=== PATIENT | female | born 1970 | race Caucasian/White ===

== ENCOUNTER 2019-04-15 19:00 | Emergency (ER) | payer MEDICAID, SELFPAY ==
[2019-04-15 19:05] VITALS: BP 122/73; PULSE 89; RESP 18; TEMP 36.8; O2SAT 96
--- NOTE | 2019-04-15 19:25 | ED.GENADUL_ITS ---
Discharge Plan Disposition Patient Disposition: HOME Condition: Stable Discharge Details Chief Complaint: RespSymp Clinical Impression: Sinusitis, Acute upper respiratory infection Primary Care Provider: Conor Cisneros ED Provider: Allen Herman Home Meds and New Rx's Prescriptions: New amoxicillin-pot clavulanate [Augmentin] 875-125 mg tablet 1 tab PO BID Qty: 14 RF: 0 prednisone 20 mg tablet 60 mg PO DAILY 5 Days Qty: 15 RF: 0 Continued lorazepam 0.5 MG tablet 0.5 mg PO PRN PRNRF: 0 Discharge Instructions Instructions: Sinusitis (ED), Upper Respiratory Infection (ED) Additional Instructions: follow up with your primary care provider within 1-2 weeks if you feel you are becoming more ill or having worsening shortness of breath return to the emergency department use the inhaler 2 puffs every 4 hours as needed for shortness breath Medical Decision Making 49 yo female with prior hx of breast cancer in remission, smoker, who comes in with sinus pain for 10 days and cough for several days. No fevers, no recent travel. She is in no distress on exam speaking in full sentences. She does have apical wheezing bilaterally at the apices otherwise clear lungs so doubt pneumonia. Suspect she has a uri with some reactive airway disease from her smoking. Will treat with duoneb and prednisone and reassess. Given noral oxygenation and no fever do not feel labs or imaging indicated. She has had sinus pressure and congestion for 10 days and pain with percussion over the maxillary sinuses consistent with sinusitis. Given length of time will start abx to treat for this. Has eomi without severe headaches so doubt entities such as cavernous sinus thrombosis, cerebral venous thrombosis or orbital cellulitis. pt feels significantly better after nebs and steroid and has only very mild apical wheezing now. Feel she is stable for d/c, return precautions given Differential Diagnosis Differential Diagnosis: sinusitis, uri HPI General Mode of arrival: ambulatory . Date/Time Provider Initiated Documentation: 04/15/19 19:18 . Limitations to Documentation: no limitations . Information obtained by: patient . History of Present Illness 49 year old F presents to the emergency department with the chief complaint of sinus congestion, described as moderate, Quality is described as aching, and is localized to the face. Patient reports no radiation. Patient started experiencing this day(s) (1) and it has been constant. No relieving factors improve symptom(s), No exacerbating factors reported . Patient notes cough. Patient did receive the following treatments prior to arrival, none Related Data Home Medications Medication Instructions Recorded Confirmed lorazepam 0.5 mg PO PRN PRN 04/16/17 04/15/19 amoxicillin-pot clavulanate 1 tab PO BID #14 tab 04/15/19 [Augmentin] prednisone 60 mg PO DAILY 5 Days #15 tab 04/15/19 Previous Rx's Medication Instructions Recorded amoxicillin-pot clavulanate 1 tab PO BID #14 tab 04/15/19 [Augmentin] prednisone 60 mg PO DAILY 5 Days #15 tab 04/15/19 Allergies Allergy/AdvReac Type Severity Reaction Status Date / Time codeine AdvReac Nausea Unverified 04/16/17 16:49 General Stated Complaint: RespSymp ROYA: 3 Review of Systems Review of Systems ROS Unobtainable: All systems reviewed & are unremarkable except as noted in HPI and below Constitutional Constitutional: Denies fever(s) and Denies weakness Cardiovascular Cardiovascular: Denies chest pain and Denies dyspnea Respiratory Respiratory: Denies dyspnea Gastrointestinal Gastrointestinal: Denies abdominal pain, Denies nausea and Denies vomiting Musculoskeletal Musculoskeletal: Denies joint swelling Neurologic Neurologic: Denies weakness PFSH Medical History Ductal carcinoma of right breast invasive, ductal, nuclear grade III. ER/VA neg. HER2+. cT2cN1/2 stage II/III. s/p neoadjuvant chemo, lumpectomy and XRT. Tobacco use Surgical History (Updated 05/20/18 @ 14:36 by [employer]) Biopsy of breast (10/22/16) right Breast, Mastectomy Partial mastectomy after neoadjuvant chemo, XRT. Family History Mother Heart disease Father Neoplasm lung and kidney Grandmother Heart disease Social History Smoking/Tobacco Use Status: Current every day Alcohol Intake: current Alcohol Intake frequency: holidays/special occasions only Drug use: Occasionally Substance use type: marijuana Do you feel safe at home: Yes Do you feel safe in your relationship?: Yes Exam Const General: no acute distress Orientation: alert HENMS Head: normal to inspection Ears: external ears normal General nose exam: external nose normal Mouth: moist mucous membranes Eyes General: appearance normal, both eyes and all related structures Neck Neck: normal visual inspection Resp Effort & Inspection: normal respiratory effort and able to speak in complete sentences Cardio Rate: regular rate Skin General skin exam: no rashes or lesions noted Neuro General: alert and oriented x3 Extrem General: normal to inspection Psych Mental Status: mental status grossly normal Course Vital Signs Vital signs: Vital Signs Temperature 36.8 C 04/15/19 19:05 Pulse 89 04/15/19 19:05 Respiratory Rate 18 04/15/19 19:05 Blood Pressure 122/73 04/15/19 19:05 Pulse Oximetry 96 04/15/19 19:05 Temperature 36.8 C 04/15/19 19:05 Pulse 89 04/15/19 19:05 Respiratory Rate 18 04/15/19 19:05 Respiratory Effort Non-Labored 04/15/19 19:07 Blood Pressure 122/73 04/15/19 19:05 Blood Pressure Position Sitting 04/15/19 19:05 Pulse Oximetry 96 04/15/19 19:05 Oxygen Delivery Method Room Air 04/15/19 19:05 Oxygen Flow Rate 0 04/15/19 19:05 Pain Level 7 04/15/19 19:05
[2019-04-15] MEDS: Amoxicillin 875/Clav. 125 TAB PO (19:33)
[2019-04-15] MEDS: Albuterol/Ipratropium 3 ML UPD VIAL UPD (19:34)
[2019-04-15] MEDS: predniSONE 20 MG TAB 60 MG PO (19:34)
[2019-04-15] MEDS: Albuterol HFA 8 GM 60 PUFF INH IH (19:42)
[2019-04-15 19:51] VITALS: BP 122/73; PULSE 89; RESP 18; O2SAT 96
== END 2019-04-15 19:51 | disposition home or self-care (01) ==
PROVIDERS: Emergency Provider Emergency Medicine; PCP Internal Medicine Medical Oncology
DX: J01.00 Acute maxillary sinusitis, unspecified (principal); J45.909 Unspecified asthma, uncomplicated; F17.210 Nicotine dependence, cigarettes, uncomplicated
CPT/HCPCS: 94640; 99283; J7512; J7620

== ENCOUNTER 2020-02-23 09:23 | Outpatient (REF) | payer MEDICAID, SELFPAY ==
--- NOTE | 2020-02-23 08:30 | PAPFT_PTH ---
PATIENT: Grisel Merdia LOC: [facility] U#:[id number] AGE/SX: 50/F ROOM: RE02/23/[address]: Miranda Herman NP : 1970 BED: DIS: 02/23/2020 SPEC #: [id number] RECD: 02/23/20 12:58 STATUS: KARON REQ #: [id number] VITA: 02/23/20 08:[address]: Miranda Herman NP DEPT: COUNTS INCLUDE 234 BEDS AT THE [facility] Cytology RECD BY: Lexie Arellano ENTERED: 02/23/20 12:58 SP TYPE: PAPFT OTHR DR: Conor Cisneros Tissues: 1 - CX/ENDOCX FOR PAP SMEARS Procedures: PAP THIN PREP/UVM Screening HPV DNA PROBE Comments: [id number]
== END 2020-02-23 09:43 ==
LOC: LBN 09:23
PROVIDERS: PCP Internal Medicine Medical Oncology; Visit Provider Nurse Practitioner Women's Health
DX: Z11.51 Encounter for screening for human papillomavirus (HPV) (principal)
CPT/HCPCS: 88142; 87624

== ENCOUNTER 2020-02-24 01:47 | Outpatient (CLI) | payer MEDICAID, SELFPAY ==
[2020-02-24 13:25] LABS: Hemoglobin A1C 5.5 % (3.8-5.6)
[2020-02-24 14:16] LABS: Calculated LDL 149 mg/dL (<100); Cholesterol 221 mg/dL (<200); HDL Cholesterol 52 mg/dL (40-60); TSH (W/Ref FT4) 1.72 uIU/mL (0.36-3.74); Triglyceride 102 mg/dL (<150)
== END 2020-02-24 02:07 ==
PROVIDERS: PCP Internal Medicine Medical Oncology; Visit Provider Nurse Practitioner Women's Health
DX: Z13.1 Encounter for screening for diabetes mellitus (principal); R63.4 Abnormal weight loss; Z13.220 Encounter for screening for lipoid disorders
CPT/HCPCS: 36415; 80061; 83036; 84443

== ENCOUNTER 2022-02-08 12:26 | Emergency (ER) | payer OTHER, SELFPAY ==
[2022-02-08 12:30] VITALS: BP 132/78; PULSE 70; RESP 18; TEMP 36.6; O2SAT 100
--- NOTE | 2022-02-08 12:45 | DI.RAD_ITS ---
Exam(s) XR FOOT RT COMPLETE EXAM: XR FOOT RT COMPLETE CLINICAL HISTORY: foot trauma. TECHNIQUE: 2D digital imaging was performed. Three views. COMPARISON: CR XR FOOT LT COMPLETE from 02/08/2022 FINDINGS: BONES: No acute fracture is present. No bony destructive lesion is seen. JOINTS: No dislocation present. SOFT TISSUE: Normal. IMPRESSION: Unremarkable radiographs of the right foot. DATA REPOSITORY: RADIATION DOSE DELIVERED:
--- NOTE | 2022-02-08 12:45 | DI.RAD_ITS ---
Exam(s) XR FOOT LT COMPLETE EXAM: XR FOOT LT COMPLETE CLINICAL HISTORY: foot trauma. TECHNIQUE: 2D digital imaging was performed. Three views. COMPARISON: No exams were available for comparison FINDINGS: BONES: No acute fracture is present. No bony destructive lesion is seen. JOINTS: No dislocation present. SOFT TISSUE: Normal. IMPRESSION: Unremarkable radiographs of the left foot. DATA REPOSITORY: RADIATION DOSE DELIVERED:
--- NOTE | 2022-02-08 13:40 | W.ED.GENAD ---
Discharge Plan Disposition Patient Disposition: HOME Condition: Stable Discharge Details Clinical Impression: Crush injury of left foot, Crush injury of right foot Primary Care Provider: Conor Cisneros ED Provider: Reggie Lamb Home Meds and New Rx's Prescriptions: Continued black cohosh 200 mg capsule 200 mg PO DAILY lorazepam 0.5 MG tablet 0.5 mg PO PRN PRN Discharge Instructions Instructions: Foot Contusion (ED) Additional Instructions: X-rays are unremarkable. [id number] Tylenol and/or Motrin as directed for discomfort. Rest, elevate, cool compresses every 2 hours for 20 minutes. Please watch for new or worsening symptoms and return to the ER for any concerns. If symptoms are persisting early next week I recommend either follow-up with your primary care provider or Workmen's Comp. provider depending on what is recommended by your employer. Medical Decision Making 52-year-old female presents for bilateral foot injury while wearing regular sneakers, pallet ugo ran over her feet. Neuro, vascular, tendon intact. Plan to obtain x-rays and reassess X-rays unremarkable. Patient reports mild pain moderate with walking. Declines crutches. Comfortable with discharge. Standard discharge and return precautions were provided. Patient understands, is agreeable to this plan, and has no additional questions or concerns upon discharge. This documentation was generated using [employer] system, please disregard any oddities of phrase or misspellings. Medical Records Medical records reviewed: Yes I reviewed the patient's medical records. Imaging Data Radiologic Study: Attestation: I personally reviewed and interpreted this imaging study as follows: Imaging: X-Ray Radiologist's impression: EXAM: XR FOOT LT COMPLETE CLINICAL HISTORY: foot trauma. TECHNIQUE: 2D digital imaging was performed. Three views. COMPARISON: No exams were available for comparison FINDINGS: BONES: No acute fracture is present. No bony destructive lesion is seen. JOINTS: No dislocation present. SOFT TISSUE: Normal. IMPRESSION: Unremarkable radiographs of the left foot. Radiologic Study #2: Attestation: I personally reviewed and interpreted this imaging study as follows: Imaging: X-Ray Radiologist's impression: EXAM: XR FOOT RT COMPLETE CLINICAL HISTORY: foot trauma. TECHNIQUE: 2D digital imaging was performed. Three views. COMPARISON: CR XR FOOT LT COMPLETE from 02/08/2022 FINDINGS: BONES: No acute fracture is present. No bony destructive lesion is seen. JOINTS: No dislocation present. SOFT TISSUE: Normal. IMPRESSION: Unremarkable radiographs of the right foot. HPI General Mode of arrival: ambulatory. Date/Time Provider Initiated Documentation: 02/08/22 13:40. Limitations to Documentation: no limitations. Information obtained by: patient. History of Present Illness 52 year old F presents to the emergency department with the chief complaint of bilat foot injury, described as moderate, with intensity rated at 4. Quality is described as aching, and is localized to the left, right and lower extremity. Patient reports no radiation. Patient started experiencing this hour(s) (1) and it has been constant. Immobilization improves symptom(s), Movement worsens symptoms . Patient notes no other symptoms.. Patient did receive the following treatments prior to arrival, none Related Data Home Medications Medication Instructions Recorded Confirmed lorazepam 0.5 mg tablet 0.5 mg PO PRN PRN 04/16/17 02/23/20 black cohosh 200 mg capsule 200 mg PO DAILY 02/23/20 02/23/20 Allergies Allergy/AdvReac Type Severity Reaction Status Date / Time codeine AdvReac Nausea Unverified 02/23/20 08:12 General Stated Complaint: Orthopedic ROYA: 4 Review of Systems Constitutional Constitutional: Denies weakness Musculoskeletal Musculoskeletal: Denies deformity, Denies arthralgias, Denies numbness, Reports stiffness and Denies tingling Integumentary/Breasts Skin/Breast: Denies erythema Neurologic Neurologic: Denies numbness, Denies tingling and Denies weakness PFSH All Active Problems (Updated 02/08/22 @ 13:46 by ANNA Mora) Crush injury of left foot (Acute) Crush injury of right foot (Acute) Lichen sclerosus et atrophicus (Acute) Anxiety (Chronic) Surgical History Biopsy of breast (10/22/16) right Breast, Mastectomy Partial mastectomy after neoadjuvant chemo, XRT. Family History Mother Heart disease Father Neoplasm lung and kidney Grandmother Heart disease Social History Smoking/Tobacco Use Status: Current every day Smoking risk assessment performed?: Yes Alcohol Intake: current Alcohol Intake frequency: holidays/special occasions only Drug use: Occasionally Substance use type: marijuana Do you feel safe at home: Yes Do you feel safe in your relationship?: Yes Female Reproductive History Menstrual Menopause type: natural Date of menopause: 12/04/16 History History 3 Para 1 Hx # Term Pregnancies Multiple births Hx # Pregnancies Ectopic pregnancies AB induced Hx Number of Living Children AB spontaneous Exam Const General: cooperative, healthy appearing, comfortable and no acute distress Orientation: alert and awake HENMT Head: normal to inspection, normocephalic and atraumatic Eyes Conjunctivae: conjunctivae normal Neck Neck: normal visual inspection, full ROM, trachea midline and supple Resp Effort & Inspection: normal respiratory effort and able to speak in complete sentences Cardio Rate: regular rate Rhythm: regular rhythm Skin General skin exam: no rashes or lesions noted Neuro General: patient alert, patient awake, moves all extremities and no focal motor deficits Cognition: normal cognition Speech: speech normal Gait: antalgic Motor: muscle tone normal throughout Sensory Exam: no sensory deficits noted Extrem General: full ROM and capillary refill normal Ankle/foot/toe images: 1. Multiple areas of contusion. Skin is intact. 5 out of 5 strength. Neuro, vascular, tendon intact. No deformity. Normal capillary refill and dorsalis pedal pulses bilaterally Psych Appearance: grossly normal Mental Status: mental status grossly normal Course Vital Signs Vital signs: Vital Signs Temperature 36.6 C 02/08/22 12:30 Pulse 70 02/08/22 12:30 Respiratory Rate 18 02/08/22 12:30 Blood Pressure 132/78 02/08/22 12:30 Pulse Oximetry 100 02/08/22 12:30 Temperature 36.6 C 02/08/22 12:30 Temperature Source Oral 02/08/22 12:30 Pulse 70 02/08/22 12:30 Respiratory Rate 18 02/08/22 12:30 Blood Pressure 132/78 02/08/22 12:30 Blood Pressure Position Supine 02/08/22 12:30 Pulse Oximetry 100 02/08/22 12:30 Oxygen Delivery Method Room Air 02/08/22 12:30 Oxygen Flow Rate 0 02/08/22 12:30 Pain Level 7 02/08/22 12:30 Comment 02/08/22 12:30
== END 2022-02-08 14:00 | disposition home or self-care (01) ==
PROVIDERS: Emergency Provider Physician Assistant; PCP Internal Medicine Medical Oncology
DX: S97.82XA Crushing injury of left foot, initial encounter (principal); S97.81XA Crushing injury of right foot, initial encounter; X58.XXXA Exposure to other specified factors, initial encounter
CPT/HCPCS: 99283; 73630

== ENCOUNTER → 2022-03-07 14:49 | Outpatient (CLI) | payer OTHER, SELFPAY ==
--- NOTE | 2022-03-07 14:30 | DI.RAD_ITS ---
Exam(s) XR FOOT RT COMPLETE EXAM: XR FOOT RT COMPLETE CLINICAL HISTORY: PERSISTENT RIGHT FOOT PAIN. CRUSHING INJURY TO FOOT--S97.81xA. TECHNIQUE: 2D digital imaging was performed. Three views. COMPARISON: No exams were available for comparison FINDINGS: BONES: No acute fracture is present. No bony destructive lesion is seen. JOINTS: No dislocation present. SOFT TISSUE: Normal. IMPRESSION: Unremarkable radiographs of the right foot. DATA REPOSITORY: RADIATION DOSE DELIVERED:
== END ==
PROVIDERS: PCP Internal Medicine Medical Oncology; Visit Provider Nurse Practitioner Family
DX: M79.671 Pain in right foot (principal)
CPT/HCPCS: 73630

== ENCOUNTER 2023-08-26 13:11 | Emergency (ER) | payer SELFPAY ==
[2023-08-26 13:14] VITALS: BP 149/89; PULSE 96; RESP 18; TEMP 37.2; O2SAT 100
--- NOTE | 2023-08-26 14:10 | ED.GENADUL_ITS ---
HPI General Mode of arrival: ambulatory . Date/Time Provider Initiated Documentation: 08/26/23 13:19 . Limitations to Documentation: no limitations . Information obtained by: patient . HPI Narrative: 54-year-old female presents with chief complaint of I need a work note to go back to work. Patient has no complaints. She notes over the past few days she has had some headache and nausea. Patient's significant other had nausea, vomiting and diarrhea around the same time. She denies respiratory illness. Patient notes she feels completely well at this time with no symptoms. She has no other complaints. Related Data Home Medications Medication Instructions Recorded Confirmed acetaminophen 500 mg capsule 500 mg PO Q6H PRN 05/10/22 08/26/23 ibuprofen 200 mg tablet 200 mg PO Q6H PRN 05/10/22 08/26/23 Allergies Allergy/AdvReac Type Severity Reaction Status Date / Time codeine AdvReac Nausea Verified 08/26/23 13:17 General Stated Complaint: GenMedical ROYA: 5 Review of Systems All systems reviewed & are unremarkable except as noted in HPI and below Constitutional Constitutional: Denies fever(s) Cardiovascular Cardiovascular: Denies chest pain Gastrointestinal Gastrointestinal: Denies abdominal pain Exam Const General: cooperative and no acute distress HENMT Mouth: moist mucous membranes Eyes Conjunctivae: normal conjunctivae Sclera: normal sclerae Cardio Rate: regular rate and not tachycardic Neuro General: patient alert, patient awake and tone normal Extrem General: no edema Psych Appearance: grossly normal Mental Status: mental status grossly normal Speech and Movement: speech and movement normal Course Vital Signs Vital signs: Vital Signs Temperature 37.2 C 08/26/23 13:14 Pulse 96 H 08/26/23 13:14 Respiratory Rate 18 08/26/23 13:14 Blood Pressure 149/89 H 08/26/23 13:14 Pulse Oximetry 100 08/26/23 13:14 Temperature 37.2 C 08/26/23 13:14 Temperature Source Skin 08/26/23 13:14 Pulse 96 H 08/26/23 13:14 Respiratory Rate 18 08/26/23 13:14 Respiratory Effort Normal, Non-Labored 08/26/23 13:17 Blood Pressure 149/89 H 08/26/23 13:14 Blood Pressure Position Sitting 08/26/23 13:14 Pulse Oximetry 100 08/26/23 13:14 Oxygen Delivery Method Room Air 08/26/23 13:14 Oxygen Flow Rate 0 08/26/23 13:14 Pain Level 0 08/26/23 13:14 Medical Decision Making 53-year-old female here for well check requesting a work note to return to work. Patient recently had headache with some nausea and was generally not feeling well. Her significant other had nausea vomiting and diarrhea around the same time. She is now completely asymptomatic. Patient is hemodynamically stable. No acute medical condition identified on examination. Plan for discharge with routine outpatient follow-up. Disposition decision was made weighing the risks and benefits of hospitalization versus outpatient treatment, the risk for further decompensation, and the patient's wishes. The patient was stable and requested discharge. Prior to discharge, my usual and customary return precautions were reviewed with the patient. Quality:SDOH Health Related Social Needs: No Data to Display PFSH All Active Problems Well adult health check (Acute) Plantar fasciitis of right foot (Acute) Metatarsalgia (Acute) Crush injury of foot (Acute) Lichen sclerosus et atrophicus (Acute) Anxiety (Chronic) Surgical History Breast, Mastectomy Partial mastectomy after neoadjuvant chemo, XRT. Biopsy of breast (10/22/16) right Family History Mother Heart disease Father Neoplasm lung and kidney Grandmother Heart disease Social History Smoking/Tobacco Use Status: Current every day Tobacco Type: cigarettes Smoking risk assessment performed?: Yes Alcohol Intake: current Alcohol Intake frequency: holidays/special occasions only Drug use: Occasionally Substance use type: marijuana Current gender identity: female Do you feel safe at home: Yes Do you feel safe in your relationship?: Yes Female Reproductive History Menstrual Menopause type: natural Date of menopause: 12/04/16 History History 3 Para 1 Hx # Term Pregnancies Multiple births Hx # Pregnancies Ectopic pregnancies AB induced Hx Number of Living Children AB spontaneous Discharge Plan Disposition Patient Disposition: Home Condition: Stable Discharge Details Clinical Impression: Well adult health check Primary Care Provider: Unknown,Unknown ED Provider: Oscar Ponce Home Meds and New Rx's Prescriptions: Continued ibuprofen 200 mg tablet 200 mg PO Q6H PRN acetaminophen 500 mg capsule 500 mg PO Q6H PRN Discharge Instructions Additional Instructions: Please contact your primary care physician to arrange follow-up. Return to the ER immediately for any worsening or new concerning symptoms. Stand Alone Forms: Work Release
== END 2023-08-26 14:14 | disposition home or self-care (01) ==
PROVIDERS: Emergency Provider Student in an Organized Health Care Education/Training Program
DX: Z02.79 Encounter for issue of other medical certificate (principal)
CPT/HCPCS: 99282

== ENCOUNTER 2024-01-27 10:29 | Emergency (ER) | payer MEDICAID, SELFPAY ==
--- NOTE | 2024-01-27 10:30 | DI.RAD_ITS ---
Exam(s) XR WRIST RT COMPL NAVICULAR EXAM: XR WRIST RT COMPL NAVICULAR CLINICAL HISTORY: fall from scooter yesterday. TECHNIQUE: 2D digital imaging was performed. Three views. COMPARISON: No exams were available for comparison FINDINGS: BONES: No acute fracture is present. No bony destructive lesion is seen. JOINTS: The carpal bones are normally aligned. SOFT TISSUE: Normal. IMPRESSION: Unremarkable radiographs of the right wrist. DATA REPOSITORY: RADIATION DOSE DELIVERED:
[2024-01-27 10:32] VITALS: BP 127/91; PULSE 90; RESP 16; TEMP 37; O2SAT 98
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
--- NOTE | 2024-01-27 16:33 | W.EDPROG ---
Date of service: 01/27/24 Time of Service: 16:33 Medical Decision Making Patient return to the emergency department during my shift. She was seen earlier today in the setting of a wrist sprain. She is requesting a note saying that she is clear for return to work. Her x-rays have been read as unremarkable. She was given a wrist brace. I did not assess this patient as she was not here to be seen again. I provided her a work note permitting her to work if she deemed her symptoms tolerable. Quality:SDOH Health Related Social Needs: No Data to Display Discharge Plan Disposition Patient Disposition: Home Condition: Stable Discharge Details Clinical Impression: Sprain of right wrist Primary Care Provider: Unknown,Unknown ED Provider: Jed Villarreal Home Meds and New Rx's Prescriptions: Continued ibuprofen 200 mg tablet 200 mg PO Q6H PRN acetaminophen 500 mg capsule 500 mg PO Q6H PRN Discharge Instructions Instructions: Wrist Sprain ED Additional Instructions: You were seen in the emergency department for the sprain of your right wrist, there is no fracture on x-ray, please use the provided Velcro splint as needed for pain over the next couple weeks. Rest, ice, compress and elevate the wrist often. Please use therapeutic dosing of Tylenol (acetamenophen) & Advil (ibuprofen) in an alternating fashion as follows: Take 1000mg of Tylenol every 6 hours without missing doses- that is 4 times per day. Long Term in between the Tylenol dosings, take 400-600mg of Advil also on a 6 hour schedule, that is also 4 times per day. The daily maximum dosing of Tylenol is 4000mg, and the daily maximum dosing of Advil is 2400mg. This is safe to do for weeks. Please note that some common cold medications & prescription pain medications may contain acetamenophen and you need to read OTC drug labels and factor that in to maximum daily dosings. Please follow-up with your primary care provider for referral to orthopedics for any complications, strict return to ED criteria for any complete numbness distal to the injury Stand Alone Forms: Work Release Discharge Data Discharge Date/Time-TO BE ENTERED AT DEPARTURE: 01/27/24 12:06
== END 2024-01-27 12:06 | disposition home or self-care (01) ==
PROVIDERS: Emergency Provider Physician Assistant
DX: S63.91XA Sprain of unspecified part of right wrist and hand, initial encounter (principal); V00.841A Fall from standing electric scooter, initial encounter; S00.83XA Contusion of other part of head, initial encounter
CPT/HCPCS: 00123; 99283; 73110